=== PATIENT | female | born 1990 | race Two or more races ===

== ENCOUNTER 2018-08-27 12:34 | Observation (INO) | payer OTHER ==
[~2018-08-27] VITALS: Ht 162.6 cm; Wt 59.9 kg
[2018-08-27 14:26] LABS: CLARITY URINE CLOUDY (CLEAR); COLOR URINE ORANGE (YELLOW); KETONES URINE NEGATIVE (NEGATIVE); LEUKOCYTE ESTERASE URINE 1+ (NEGATIVE); NITRITE URINE NEGATIVE (NEGATIVE); OCCULT BLOOD URINE 3+ (NEGATIVE); PROTEIN URINE TRACE (NEGATIVE); SPECIFIC GRAVITY URINE 1.019 (1.005-1.030)
[2018-08-27] MEDS ORDERED: PREN1TAB78 MT (14:52)
[2018-08-27] MEDS: LACTATED RINGERS 1,000 ML IV SCH ×2 (14:53→15:43)
[2018-08-27] MEDS ORDERED: TERBUTALINE SULFATE 1MG/ML VIAL SUBCUT SCH (15:30)
== END 2018-08-27 18:00 | disposition home or self-care (01) ==
LOC: 8 EST LDRP 12:34
PROVIDERS: ADMIT Obstetrics & Gynecology; ATTEND Obstetrics & Gynecology
DX: O46.93 Antepartum hemorrhage, unspecified, third trimester (principal); O62.9 Abnormality of forces of labor, unspecified; Z3A.32 32 weeks gestation of pregnancy
CPT/HCPCS: 81003; 82731; 96372; 99281; G0378; J3105; 96360; 96361; J7120

== ENCOUNTER 2018-09-22 21:26 | Observation (INO) | payer OTHER ==
[~2018-09-22] VITALS: Ht 165.1 cm; Wt 64.0 kg
[~2018-09-22 21:26] MED LIST: PREN1TAB78 MT
[2018-09-22] MEDS: LACTATED RINGERS 1,000 ML IV SCH (23:23)
[2018-09-22] MEDS: TERBUTALINE SULFATE 1MG/ML VIAL SUBCUT PRN (23:23)
[2018-09-23] MEDS: TERBUTALINE SULFATE 1MG/ML VIAL SUBCUT PRN (00:16)
[2018-09-23 01:07] LABS: CLARITY URINE CLEAR (CLEAR); COLOR URINE DARK YELLOW (YELLOW); KETONES URINE 2+ (NEGATIVE); LEUKOCYTE ESTERASE URINE TRACE (NEGATIVE); NITRITE URINE NEGATIVE (NEGATIVE); OCCULT BLOOD URINE NEGATIVE (NEGATIVE); PROTEIN URINE TRACE (NEGATIVE); SPECIFIC GRAVITY URINE 1.023 (1.005-1.030)
[2018-09-23] MEDS: LACTATED RINGERS 1,000 ML IV SCH (01:12)
[2018-09-23 01:59] VITALS: BP 108/58
[2018-09-23] MEDS ORDERED: BUTORPHANOL TARTRATE 2 MG/ML VIAL IV NR (02:00)
== END 2018-09-23 03:05 | disposition home or self-care (01) ==
LOC: 8 EST LDRP 21:26
PROVIDERS: ADMIT Obstetrics & Gynecology; ATTEND Obstetrics & Gynecology
DX: O62.9 Abnormality of forces of labor, unspecified (principal); Z3A.36 36 weeks gestation of pregnancy
CPT/HCPCS: 96360; 96361; 96372; 96374; 99281; G0378; J0595; J3105

== ENCOUNTER 2018-09-24 18:12 | Observation (INO) | payer OTHER ==
[~2018-09-24] VITALS: Ht 165.1 cm; Wt 64.0 kg
== END 2018-09-24 19:01 | disposition home or self-care (01) ==
LOC: 8 EST LDRP 18:12
PROVIDERS: ADMIT Obstetrics & Gynecology; ATTEND Obstetrics & Gynecology
DX: O26.893 Other specified pregnancy related conditions, third trimester (principal); R10.30 Lower abdominal pain, unspecified; O62.9 Abnormality of forces of labor, unspecified; Z3A.36 36 weeks gestation of pregnancy
CPT/HCPCS: 99281; G0378